=== PATIENT | female | born 1950 | race Two or more races ===

== ENCOUNTER 2017-06-19 17:48 | Observation (INO) | payer BC, MEDICAID ==
[~2017-06-19] VITALS: Ht 160 cm; Wt 63.1 kg
[2017-06-19] MEDS ORDERED: METHYLPREDNISOLONE SOD SUCC 125 MG/2 ML VIAL IV STA (18:26)
[2017-06-19] MEDS ORDERED: SODIUM CHLORIDE 0.9% 500 ML IV ONE (18:26)
[2017-06-19] MEDS ORDERED: IPRATROPIUM/ALBUTEROL 0.5-3(2.5)MG/3ML NEB HHN ONE (18:30)
[2017-06-19] MEDS ORDERED: AZITHROMYCIN 500 MG in DEXT 5% WATER 250 ML IV SCH (18:30)
[2017-06-19] MEDS: CEFTRIAXONE 1 G PREMIX 50 ML IV ONE ×2 (18:42→18:53)
[2017-06-19 19:07] LABS: BASOPHILS % 0.4 % (0.0-2.0); EOSINOPHILS % 10.3 % (0.0-5.0); HEMOGLOBIN. 9.5 g/dL (12.0-16.0); LYMPHOCYTES % 8.2 % (20.0-50.0); MEAN CORPUSCULAR HEMOGLOBIN 30.7 pg (28.0-32.0); MEAN CORPUSCULAR VOLUME 93.7 fL (81.0-99.0); MEAN PLATELET VOLUME 8.7 fl (7.4-10.4); MONOCYTES % 10.3 % (2.0-8.0); NEUTROPHILS % 70.8 % (40.0-76.0); PLATELET 101 x1000/uL (130-400); RED CELL DISTRIBUTION WIDTH 14.7 % (11.6-14.6)
[2017-06-19 19:12] LABS: CHLORIDE 96 mEq/L (98-107)
[2017-06-19 19:15] LABS: INR 1.1; PARTIAL THROMBOPLASTIN TIME 27.7 sec (24.0-34.0); PROTHROMBIN TIME 11.4 sec
[2017-06-19 19:19] LABS: CARBON DIOXIDE 30 mEq/L (21-32)
[2017-06-19 19:24] LABS: CREATINE KINASE 150 IU/L (26-192)
[2017-06-19 19:26] LABS: TROPONIN I < 0.02 ng/mL (0.00-0.04)
[2017-06-19 20:33] LABS: CLARITY URINE CLEAR (CLEAR); COLOR URINE YELLOW (YELLOW); GLUCOSE URINE NEGATIVE (NEGATIVE); KETONES URINE NEGATIVE (NEGATIVE); LEUKOCYTE ESTERASE URINE NEGATIVE (NEGATIVE); NITRITE URINE NEGATIVE (NEGATIVE); OCCULT BLOOD URINE NEGATIVE (NEGATIVE); PH URINE 7.5 (4.5-8.0); PROTEIN URINE NEGATIVE (NEGATIVE); SPECIFIC GRAVITY URINE 1.006 (1.005-1.030); UROBILINOGEN URINE 0.2 E.U./dL (0.2-1.0)
[2017-06-19 21:24] LABS: BG BASE EXCESS -0.7 mmol/L (-2.0-2.0); BG CARBOXYHEMOGLOBIN 0.7 % (0.5-1.5); BG DEOXYHEMOGLOBIN 2.9 % (0.0-5.0); BG FRACTION INSPIRED OXYGEN 28; BG HCO3 ACT 23.2 mmol/L (22.0-26.0); BG METHEMOGLOBIN 0.2 % (0.0-1.5); BG OXYGEN SATURATION 97.1 % (92.0-98.5); BG OXYHEMOGLOBIN 96.2 % (94.0-97.0); BG PCO2 35.7 mmHg (35.0-45.0); BG PH 7.431 (7.350-7.450); BG PO2 97.2 mmHg (75.0-100.0); BG SAMPLE SITE LEFT BRACHIAL; BG TOTAL HEMOGLOBIN 12.1 g/dL (12.0-18.0); BG VENT MODE NASAL CANNULA
[2017-06-19 23:35] VITALS: BP 99/55
[2017-06-19 23:45] VITALS: BP 99/55
[2017-06-20] MEDS ORDERED: ONDA4TAB5 PO (00:15)
[2017-06-20] MEDS ORDERED: OSIM80TA PO (00:15)
[2017-06-20] MEDS ORDERED: LEVO50TA8 PO (00:15)
[2017-06-20] MEDS ORDERED: ROSU10TA PO (00:15)
[2017-06-20 05:17] VITALS: BP 94/46
[2017-06-20] MEDS ORDERED: LEVOTHYROXINE SODIUM 50MCG TABLET PO SCH ×2 (07:20→21:00)
[2017-06-20 08:00] VITALS: BP 123/57
[2017-06-20] MEDS: ONDANSETRON HCL 4MG TABLET PO SCH ×2 (08:42→17:59)
[2017-06-20] MEDS: SODIUM CHLORIDE 0.9% 1,000 ML IV SCH (08:42)
[2017-06-20] MEDS: METHYLPREDNISOLONE SOD SUCC 40 MG/ML VIAL IV SCH ×2 (08:45→17:59)
[2017-06-20] MEDS: PANTOPRAZOLE 40MG DR TABLET PO SCH (08:45)
[2017-06-20] MEDS: MORPHINE SULFATE 2 MG/ML CPJ (NOT FOR IM USE) IV PRN ×2 (08:50→20:53)
[2017-06-20] MEDS: PIPERACILLIN/TAZ 3.375G PREMIX 50 ML IV SCH ×2 (11:01→18:03)
[2017-06-20 12:09] VITALS: BP 118/57
[2017-06-20] MEDS: IPRATROPIUM/ALBUTEROL 0.5-3(2.5)MG/3ML NEB HHN SCH ×3 (12:34→21:08)
[2017-06-20 16:00] VITALS: BP 95/55
[2017-06-20] MEDS ORDERED: IOHEXOL-350 100 ML BOTTLE ONE (16:15)
[2017-06-20] MEDS ORDERED: SODIUM CHLORIDE 0.9% 10ML VIAL ONE (16:15)
[2017-06-20] MEDS ORDERED: ACETAMINOPHEN 650MG/20.3ML UDC PO PRN (18:45)
[2017-06-20 20:52] VITALS: BP 102/63
[2017-06-20] MEDS ORDERED: ATORVASTATIN CALCIUM 20MG TABLET PO SCH (21:00)
[2017-06-20] MEDS ORDERED: PATIENT OWN MED PO SCH (21:00)
[2017-06-21] MEDS: IPRATROPIUM/ALBUTEROL 0.5-3(2.5)MG/3ML NEB HHN SCH ×5 (00:39→17:00)
[2017-06-21 00:49] VITALS: BP 94/53
[2017-06-21] MEDS: PIPERACILLIN/TAZ 3.375G PREMIX 50 ML IV SCH ×2 (01:23→09:45)
[2017-06-21] MEDS: SODIUM CHLORIDE 0.9% 1,000 ML IV SCH (01:23)
[2017-06-21] MEDS: METHYLPREDNISOLONE SOD SUCC 40 MG/ML VIAL IV SCH ×2 (01:23→09:45)
[2017-06-21] MEDS: MORPHINE SULFATE 2 MG/ML CPJ (NOT FOR IM USE) IV PRN (01:34)
[2017-06-21 05:08] VITALS: BP 94/50
[2017-06-21] MEDS: PANTOPRAZOLE 40MG DR TABLET PO SCH (06:23)
[2017-06-21 07:59] VITALS: BP 84/50
[2017-06-21] MEDS: ONDANSETRON HCL 4MG TABLET PO SCH (09:45)
[2017-06-21 12:02] VITALS: BP 87/48
[2017-06-21 14:55] VITALS: BP 110/66
[2017-06-21 15:40] VITALS: BP 94/57
== END 2017-06-21 15:40 | disposition home or self-care (01) ==
LOC: ER 18:18 → INTOOBSV 20:59 → 6WST 20:59 → EDBEDREQTM 21:03 → EDBEDREQ 21:03 → ENRESERV 22:53
PROVIDERS: ADMIT Internal Medicine; ATTEND Internal Medicine
DX: C34.90 Malignant neoplasm of unspecified part of unspecified bronchus or lung (principal); J18.9 Pneumonia, unspecified organism; E03.9 Hypothyroidism, unspecified; E05.90 Thyrotoxicosis, unspecified without thyrotoxic crisis or storm; R04.2 Hemoptysis; R06.09 Other forms of dyspnea
CPT/HCPCS: 36415; 36600; 71010; 71275; 80053; 81003; 82375; 82550; 82805; 83605; 83690; 83880; 84443; 84484; 85025; 85610; 85730; 87040; 87086; 93005; 94640; 96361; 96365; 96367; 96375; 96376; 99285; A4216; G0378; J0456; J0696; J2270; J2543; J2920; J2930; J7030; J7040; Q0162; Q9967; J7060; J7620